=== PATIENT | female | born 1960 | race African-American/Black ===

== ENCOUNTER → 2016-12-15 | Outpatient (CLI) | payer OTHER ==
[~2016-12-15] MED LIST: AMLO10 PO; ASCO500C PO; B COTAB3 PO; CHLO50TA PO; DYAZ37.52 PO; FERR324T7 PO; FOLITAB6 PO; MULTCAP13 PO; SYNT112T PO; TOVI8TAB PO; VITA400C28 PO
[2016-12-15 08:43] LABS: AUTOMATED NEUTROPHIL # 4.3 TH/MM3 (1.8-7.7); BASOPHIL % 0.2 % (0.0-2.0); EOSINOPHIL # 0.1 TH/MM3 (0-0.4); EOSINOPHIL % 1.5 % (0.0-4.0); HEMATOCRIT 37.6 % (35.0-46.0); HEMO FLAGS DIFF FINAL; LYMPH % 29.4 % (9.0-44.0); MEAN CELL VOLUME 89.6 FL (80.0-100.0); MEAN CORPUSCULAR HEMOGLOBIN 30.7 PG (27.0-34.0); MEAN CORPUSCULAR HGB CONC 34.3 % (32.0-36.0); MONO % 7.5 % (0.0-8.0); NEUT % 61.4 % (16.0-70.0); PLATELET COUNT 301 TH/MM3 (150-450); RED CELL DISTRIBUTION WIDTH 13.4 % (11.6-17.2)
[2016-12-15 09:12] LABS: ALKALINE PHOSPHATASE 116 U/L (45-117); ALT (GPT) 30 U/L (10-53); ANION GAP 7 MEQ/L (5-15); AST (GOT) 16 U/L (15-37); BICARBONATE 29.3 MEQ/L (21.0-32.0); BLOOD UREA NITROGEN 12 MG/DL (7-18); CHLORIDE 104 MEQ/L (98-107); FREE T4 1.29 NG/DL (0.76-1.46); GAMMA GT 13 U/L (5-55); GLOMERULAR FILTRATION RATE 110 ML/MIN (>89); GLUCOSE,FASTING 97 MG/DL (74-99); HDL CHOLESTEROL 51.9 MG/DL (40.0-60.0); LDH SERUM 178 U/L (84-246); LDL CHOLESTEROL 96 MG/DL (0-99); POTASSIUM 4.1 MEQ/L (3.5-5.1); SODIUM (NA) 140 MEQ/L (136-145); TOTAL BILIRUBIN ADULT 0.3 MG/DL (0.2-1.0); URIC ACID 3.8 MG/DL (2.6-6.0)
== END ==
LOC: CLAB 08:10
DX: Z00.8 Encounter for other general examination (principal); I51.9 Heart disease, unspecified; I51.7 Cardiomegaly; E04.1 Nontoxic single thyroid nodule; Z79.899 Other long term (current) drug therapy
CPT/HCPCS: 36415; 80050; 80053; 80061; 82977; 83615; 84100; 84439; 84443; 84481; 84550; 85025

== ENCOUNTER 2017-10-02 23:45 | Emergency (ER) | payer OTHER ==
[~2017-10-02] VITALS: Ht 167.6 cm; Wt 102.0 kg
[2017-10-03 00:21] VITALS: BP 153/79; PULSE 105; RESP 20; TEMP 100.2; O2SAT 98
[2017-10-03] MEDS ORDERED: AMLO5TAB2 PO (04:44)
[2017-10-03] MEDS ORDERED: LISI-519 PO (04:44)
[2017-10-03 04:45] VITALS: BP 171/82; PULSE 105; RESP 20; O2SAT 96
[2017-10-03] MEDS ORDERED: IBUPROFEN 800 MG TAB PO ONE (04:45)
--- NOTE | 2017-10-03 05:05 | PD ---
HPI Chief Complaint: Cold / Flu Symptoms Time Seen by Provider: 04:45 Travel History International Travel<30 days: No Contact w/Intl Traveler<30days: No Traveled to known affect area: No History of Present Illness HPI 57-year-old black female presents emergency department with complaints of cough and posttussive emesis. She states that she has been sick now for nearly 2 weeks. She was seen by her doctor last week and was given a prescription for Zithromax and refill of her Norvasc. She has been using [id number] Mucinex. Patient reports starting to feel better after being on her medication for the past week but now in the last 24 hours she is gotten significantly worse again. She has had some episodes of posttussive emesis. She feels rundown, weak. She reports subjective fever and chills. She denies nausea no abdominal pain. No dysuria. PFSH Past Medical History Narrative Medical Hypertension, hyperthyroidism, diabetes, pernicious anemia Anemia: Yes Blood Disorders: No Heart Rhythm Problems: No Cancer: No Cardiovascular Problems: Yes (HTN, Heart murmor) High Cholesterol: No Chest Pain: No Congestive Heart Failure: No Diabetes: Yes Diminished Hearing: No Gastrointestinal Disorders: No Genitourinary: No Hypertension: Yes Musculoskeletal: No Neurologic: No Psychiatric: No Reproductive: No Respiratory: No Myocardial Infarction: No Thyroid Disease: Yes Tetanus Vaccination: Unknown Influenza Vaccination: No Menopausal: Yes Ectopic : Yes Tubal Ligation: Yes (LEFT TUBE) Past Surgical History Abdominal Surgery: No AICD: No Cardiac Surgery: No Section: Yes (X2) Ear Surgery: No Endocrine Surgery: No Eye Surgery: No Genitourinary Surgery: No Gynecologic Surgery: Yes (tubal c section) Insulin Pump: No Joint Replacement: No Oral Surgery: No Pacemaker: No Thoracic Surgery: No Social History Alcohol Use: No Tobacco Use: No Substance Use: No Allergies-Medications (Allergen,Severity, Reaction): Coded Allergies: No Known Allergies (Verified , 02/10/12) Reported Meds & Prescriptions Reported Meds & Active Scripts Active Tussionex Pennkinetic Ext 12 HR Liq (Hydrocodone-Chlorpheniramine 12 HR Liq) 10- 8 Mg/5 Ml Susp 5 Ml PO Q12H PRN 7 Days Reported Lisinopril 5 Mg Tab 5 Mg PO DAILY Amlodipine (Amlodipine Besylate) 5 Mg Tab 5 Mg PO DAILY Review of Systems General / Constitutional: Positive: Fever, Chills Eyes: No: Visual changes HENT: Positive: Congestion, No: Headaches, Earache Cardiovascular: No: Chest Pain or Discomfort Respiratory: Positive: Cough, No: Shortness of Breath Gastrointestinal: Positive: Other (Posttussive emesis), No: Nausea, Abdominal Pain Genitourinary: Positive: Frequency, No: Dysuria Musculoskeletal: Positive: Myalgias, Arthralgias, Weakness, Pain Skin: No Rash Neurologic: No: Weakness Psychiatric: No: Depression Endocrine: No: Polydipsia Hematologic/Lymphatic: No: Easy Bruising Physical Exam Narrative GENERAL: Well-developed, well-nourished in no acute distress. Nontoxic appearing. HEAD: Normocephalic, atraumatic. EYES: Pupils equal round and reactive. Extraocular motions intact. No scleral icterus. No injection or drainage. ENT: TMs clear without erythema. The external auditory canals clear. Nose: clear . Posterior pharynx is pink and moist. No tonsillar edema or exudate. Uvula midline. Airway patent. NECK: Trachea midline.Supple, nontender, moves head freely. No central bony tenderness or spasm. CARDIOVASCULAR: Regular rate and rhythm without murmurs, gallops, or rubs. RESPIRATORY: Few scattered rhonchi. No wheezes or rales. GASTROINTESTINAL: Abdomen soft, non-tender, nondistended. No hepato-splenomegaly , or palpable masses. No guarding. EXTREMITIES: No clubbing, cyanosis, or edema. No joint tenderness, effusion, or edema noted. BACK: Nontender without deformity or crepitance. No flank tenderness. Data Data Last Documented VS Vital Signs Date Time Temp Pulse Resp B/P (MAP) Pulse Ox O2 Delivery O2 Flow Rate FiO2 10/03/17 04:45 105 20 171/82 (111) 96 Room Air 10/03/17 00:21 100.2 Orders Orders Influenzae A/B Antigen (10/03/17 04:45) Chest, Pa & Lat (10/03/17 04:45) Ibuprofen (Motrin) (10/03/17 04:45) Ed Discharge Order (10/03/17 05:37) Benzonatate (Tessalon) (10/03/17 05:45) MDM Medical Decision Making Medical Screen Exam Complete: Yes Emergency Medical Condition: Yes Medical Record Reviewed: Yes Interpretation(s) Chest x-ray: Negative for acute infiltrate. Positive cardiomegaly. Influenza: Positive Differential Diagnosis MDM: High Differential diagnoses: Pneumonia, bronchitis, URI, asthma, RAD, legionnaire's disease, SARS, ARDS, influenza, bronchiolitis, RSV,PE,CHF Narrative Course Patient's x-ray is negative for infiltrate. Patient is positive for flu. Patient is given to Chris Haney p.torrie. This is influenza Diagnosis Primary Impression: Influenza Patient Instructions: General Instructions Departure Forms: Tests/Procedures, Work Release Special Instructions: No work 4 days. Additional Instructions: Rest. Increase fluids. Tylenol and Advil. Tussionex. Followup with your Dr. in one week. Return to the ER for any problems. Med/Other Pt SpecificInfo: Prescription(s) given Scripts Hydrocodone-Chlorpheniramine 12 HR Liq (Tussionex Pennkinetic Ext 12 HR Liq) 10- 8 Mg/5 Ml Susp 5 ML PO Q12H Y for COUGH AND/OR COLD SYMPTOMS for 7 Days, #70 ML 0 Refills Prov: Mary Luis DO 10/03/17 Disposition: 01 DISCHARGE HOME Condition: Stable Jaime Fagan Oct 03, 2017 05:05
[2017-10-03] MEDS ORDERED: TUSSSUS2 PO (05:39)
[2017-10-03] MEDS ORDERED: BENZONATATE 100 MG CAP PO ONE (05:45)
--- NOTE | 2017-10-03 05:56 | RADRPT ---
EXAM DATE/TIME: 10/03/2017 05:22 [facility] COMPARISON: No previous studies available for comparison. INDICATIONS : Cough, flu like symptoms. MEDICAL HISTORY : None. SURGICAL HISTORY : None. ENCOUNTER: Initial ACUITY: 1 day PAIN SCORE: 0/10 LOCATION: Bilateral chest FINDINGS: PA and lateral views of the chest demonstrate the lungs to be symmetrically aerated without evidence of mass, infiltrate or effusion. The cardiomediastinal contours are unremarkable. Osseous structure s are intact. CONCLUSION: No acute disease. Jay Jay Koch Jr., MD on October 03, 2017 at 5:54 Board Certified Radiologist. This report was verified electronically.
== END 2017-10-03 05:59 | disposition home or self-care (01) ==
LOC: NEPD 23:45
DX: J09.X2 Influenza due to identified novel influenza A virus with other respiratory manifestations (principal); I51.7 Cardiomegaly; I10 Essential (primary) hypertension; E05.90 Thyrotoxicosis, unspecified without thyrotoxic crisis or storm; E11.9 Type 2 diabetes mellitus without complications; D51.0 Vitamin B12 deficiency anemia due to intrinsic factor deficiency; E07.9 Disorder of thyroid, unspecified; Z79.899 Other long term (current) drug therapy
CPT/HCPCS: 71046; 87804; 99284

== ENCOUNTER → 2017-12-01 | Outpatient (CLI) | payer OTHER ==
[~2017-12-01] MED LIST changes: -AMLO10 PO; +AMLO5TAB2 PO; -ASCO500C PO; -B COTAB3 PO; -CHLO50TA PO; -DYAZ37.52 PO; -FERR324T7 PO; -FOLITAB6 PO; +LISI-519 PO; -MULTCAP13 PO; -SYNT112T PO; -TOVI8TAB PO; +TUSSSUS2 PO; -VITA400C28 PO
[2017-12-01 08:09] LABS: ALBUMIN 3.4 GM/DL (3.4-5.0); BLOOD UREA NITROGEN 12 MG/DL (7-18); CREATININE 0.67 MG/DL (0.50-1.00); GLOMERULAR FILTRATION RATE 109 ML/MIN (>89); GLUCOSE,FASTING 95 MG/DL (74-99)
[2017-12-01 08:53] LABS: ALKALINE PHOSPHATASE 109 U/L (45-117); ALT (GPT) 26 U/L (10-53); AST (GOT) 15 U/L (15-37); CHLORIDE 106 MEQ/L (98-107); SODIUM (NA) 142 MEQ/L (136-145); TOTAL BILIRUBIN ADULT 0.4 MG/DL (0.2-1.0); TOTAL PROTEIN 8.1 GM/DL (6.4-8.2)
[2017-12-03 03:49] LABS: THYROID PEROX AB (MICROSOMAL) 4 IU/mL (<9)
[2017-12-03 23:52] LABS: THYROGLOB ABS LESS THAN 1 IU/mL (< OR = 1)
== END ==
LOC: CLAB 07:16
DX: E04.1 Nontoxic single thyroid nodule (principal); R73.01 Impaired fasting glucose; E03.9 Hypothyroidism, unspecified
CPT/HCPCS: 36415; 80053; 83036; 84439; 84443; 84481; 86376; 86800